=== PATIENT | female | born 1960 | race Two or more races ===

== ENCOUNTER 2024-05-07 07:10 | Day surgery (SDC) | payer MEDICAID, SELFPAY ==
[2024-05-06 15:01] VITALS: BMI 29.6
[2024-05-07] VITALS (13 sets, daily range): BP systolic 121–172; BP diastolic 62–78; PULSE 54–82; RESP 12–21; TEMP 36.7–37.1; O2SAT 95–100; BMI 31.1
[2024-05-07] MEDS: RINGERS LACTATED 1000 ML 1,000 ML 60 ML IV (08:52)
[2024-05-07] MEDS: fentaNYL CIT INJ 50 mCg/ML AMP 2ML (ASD USE ONLY) IV (08:53)
[2024-05-07] MEDS: MIDAZOLAM INJ 1 MG/ML VIAL 2 ML (ASD USE ONLY) 2 MG IV (08:53)
[2024-05-07] MEDS: DiphenhydrAMINE INJ 50 MG/ML VIAL 25 MG IV (08:54)
== END 2024-05-07 09:48 | disposition home or self-care (01) ==
PROVIDERS: PCP Physician Assistant; Referring Provider Specialist; Visit Provider Specialist
PROC: 0DBE8ZX Excision of Large Intestine, Via Natural or Artificial Opening Endoscopic, Diagnostic (ICD-10-PCS; CPT 45380; principal; 2024-05-07 08:30)
DX: K64.9 Unspecified hemorrhoids (principal); R19.5 Other fecal abnormalities
CPT/HCPCS: 45378; 80053; 81001; 85025; 85610; 85730; J1200; J2250; J3010; J7120

== ENCOUNTER 2024-05-24 08:40 | Day surgery (SDC) | payer MEDICAID, SELFPAY ==
[2024-05-24] VITALS (11 sets, daily range): BP systolic 124–200; BP diastolic 59–102; PULSE 58–95; RESP 13–20; TEMP 36.7–37.2; O2SAT 95–100; BMI 28.8
[2024-05-24] MEDS: BENZOCAINE 20% (Hurricaine) SPRAY 1 DOSE TOP (10:52)
[2024-05-24] MEDS: RINGERS LACTATED 1000 ML 1,000 ML 60 ML IV (10:52)
[2024-05-24] MEDS: MIDAZOLAM INJ 1 MG/ML VIAL 2 ML (ASD USE ONLY) 2 MG IV (10:54)
[2024-05-24] MEDS: ONDANSETRON INJ 2 MG/ML INJ 2 ML 4 MG IV (10:54)
[2024-05-24] MEDS: DiphenhydrAMINE INJ 50 MG/ML VIAL 25 MG IV (10:54)
[2024-05-24] MEDS: fentaNYL CIT INJ 50 mCg/ML AMP 2ML (ASD USE ONLY) IV (11:01)
[2024-05-24] MEDS: hydrALAZINE INJ 20 MG/ML VIAL 10 MG IV (11:04)
== END 2024-05-24 12:05 | disposition home or self-care (01) ==
PROVIDERS: PCP Physician Assistant; Referring Provider Specialist; Visit Provider Specialist
PROC: (CPT 43239; principal; 2024-05-24 10:45)
DX: K44.9 Diaphragmatic hernia without obstruction or gangrene (principal); R19.5 Other fecal abnormalities
CPT/HCPCS: 43235; J0360; J1200; J2250; J2405; J3010; J7120; A9270

== ENCOUNTER → 2024-09-24 | Outpatient (CLI) | payer MEDICAID, SELFPAY ==
--- NOTE | 2024-09-24 15:15 | XR_ITS ---
Examination: Screening digital mammography, bilateral Computer aided detection 3-D breast Tomosynthesis, bilateral Date and time of exam: September 24, 2024 1113 hours Compared to July 25, 2007 Indication: Screening Technique: Nonmagnified MLO, CC views of the breasts to been obtained, reconstructed from 3-D Tomosynthesis images. R2 computer aided detection program utilized for evaluation of suspicious masses and/or abnormal calcifications. 3-D Tomosynthesis images obtained. Findings: Scattered areas of fibroid rather density. Benign calcifications. No interval suspicious masses Impression: BI-RADS category II: Benign Findings. Recommend 1 year follow-up mammogram.
== END | disposition home or self-care (01) ==
PROVIDERS: PCP Physician Assistant; Referring Provider Physician Assistant; Visit Provider Physician Assistant
DX: Z12.31 Encounter for screening mammogram for malignant neoplasm of breast (principal); R92.323 Mammographic fibroglandular density, bilateral breasts; R92.1 Mammographic calcification found on diagnostic imaging of breast
CPT/HCPCS: 77063; 77067